=== PATIENT | female | born 1990 | race Two or more races ===

== ENCOUNTER 2017-01-07 06:31 | Inpatient (IN) | payer SELFPAY ==
[~2017-01-07] VITALS: Ht 165.1 cm; Wt 75.3 kg
[2017-01-07] VITALS (14 sets, daily range): BP systolic 116–138; BP diastolic 63–86; Ht 165.1 cm; Wt 75.3 kg
[2017-01-07] MEDS ORDERED: PRENATAL COMPLE1 TAB PO (06:35)
[2017-01-07] MEDS ORDERED: FERROUS SULFAT325 MG PO (06:37)
[2017-01-07] MEDS ORDERED: VITAMIN B-1250 MCG PO (06:38)
[2017-01-07 06:48] LABS: HEMATOCRIT 33.6 % (36.0-48.0); HEMOGLOBIN 10.4 g/dL (12-16); MCV 77.6 fL (80.0-100.0); MEAN PLATELET VOLUME 11.6 fL (7.4-10.4); RBC 4.33 10x6/uL (4.00-5.40); RDW 22.3 % (11.5-14.5)
--- NOTE | 2017-01-07 07:48 | NUR ---
INFANT BORN AT 0741
--- NOTE | 2017-01-07 09:00 | NUR ---
PT IS RECEIVED FROM RECOVERY. PT IS AWAKE AND ALERT. LUNGS-= CLEAR. HEART - RRR. ABD SOFT WITH TENDERNESS. BIKINI LINE INCISION WITH STERI STRIPS INTACT. CLEAN AND DRY. TRAN INTACT. WITH 100 CC [place] COLORED URINE. EMPTIED INTO TRAN BAG. EXT- SCD'S INTACT. IV R WRIST WITH NS WITH PIT INFUSING AT 125 CC/HR. DEMEROL WARP KNITTING MACHINE OPERATOR INITIATED. 10 MG Q 10 MIN WITH NO LOCKOUT DOSE. SALINE LOCK NOTED LEFT WRIST ALSO WHICH IS PATENT. BED IS LOW, SIDE RAILS UP X 2 AND CALL LIGHT IN REACH. PT WAS INSTRUCTED ON POST OP CARE.
--- NOTE | 2017-01-07 09:55 | NUR ---
Visited with pt. denies needs at this time. Updated communication board. Discussed goal.
--- NOTE | 2017-01-07 11:24 | NUR ---
PATIENT IS LYING IN BED. FAMILY AT BEDSIDE. PT STATES HER PAIN IS ABOUT A 5. HER TRAN IS PATENT. 175 CC [place] COLORED URINE. IV PATENT WITH NS W/ PIT INFUSING AT 125 CC/HR. DEMEROL STONE BANKER. VSS. INCISION CLEAN AND DRY. ICE PACK INTACT.
--- NOTE | 2017-01-07 12:30 | NUR ---
PT IS SLEEPING. FAMILY AT BEDSIDE. VSS. BED IS LOW, SIDE RAILS UP X 2 AND CALL LIGHT IN REACH.
--- NOTE | 2017-01-07 13:30 | NUR ---
PT IS SLEEPING IN BED. SISTER IS AT BEDSIDE. BED IS LOW. SIDE RAILS UP X 2 AND CALL LIGHT IS IN REACH. TRAN WITH 100 CC [place] COLORED URINE. IV PATENT.
--- NOTE | 2017-01-07 14:25 | NUR ---
PT IS LYING IN BED. OFFER NO COMPLAINTS . PAIN IS ABOUT A 2-3. BED PADS AND PERIPADS CHANGED FOR PT. MODERATE LOCIA RUBRA. FUNDUS IS FIRM AT UMBILICUS. TRAN INTACT WITH 100 CC [place] COLORED URINE. BED IS LOW, SIDE RAILS UP X 2 AND CALL LIGHT IN REACH.
--- NOTE | 2017-01-07 18:39 | NUR ---
NEW DEMEROL OFFICE CLIN ASST INITIATED. IV PATENT.
--- NOTE | 2017-01-07 19:30 | NUR ---
V/S STABLE. HER BABY.
--- NOTE | 2017-01-07 19:55 | NUR ---
AWAKE DURING INITIAL ROUNDS. INTRODUCED SELF. ASSESSMENT DONE. STATUS POST C/S TODAY. IVF NS+20 units PITOCIN @ 125cc/hr TO R WRIST. IV SITE OK. NEW IV BAG HUNG. TRAN CATH TO DRAINAGE BAG PATENT. LOW TRANSVERSE INCISION WITH STERI-STRIPS INTACT. SCD's TO LOWER EXTREMITIES TO PREVENT DVT. INFANT IN THE ROOM IN OPEN CRIB--BABY HANDED TO MOM. DEMEROL TRANSFORMER MECHANIC FOR PAIN MANAGEMT. SEE E-MAR.
--- NOTE | 2017-01-07 23:00 | NUR ---
HER BABY. BONDING WELL.
--- NOTE | 2017-01-08 | NUR ---
V/S STABLE. TRAN/JENNY-CARE DONE. MODERATE TO LIGHT LOCHIA RUBRA. JENNY-PAD CHANGED. TRAN CATH BAG EMPTIED. IV PUMP CLEARED.
--- NOTE | 2017-01-08 01:46 | NUR ---
NURSERY NURSE BROUGHT BABY TO MOM FOR . GOOD INFANT-MATERNAL BONDING.
[2017-01-08 03:23] VITALS: BP 134/72
--- NOTE | 2017-01-08 03:23 | NUR ---
V/S STABLE. INFANT IN HER ARMS.
--- NOTE | 2017-01-08 03:50 | NUR ---
PT RINGS CL. THIS RN TO BEDSIDE. CURRENT INFUSION OF PITOCIN COMPLETE. OLD BAG DOWN. NEW BAG UP TO PRESENT TUBING. SEE EMAR. INFANT PLACED IN OPEN CRIB PER PT REQUEST. PT DENIES FURTHER NEEDS.
--- NOTE | 2017-01-08 03:55 | NUR ---
PT RINGS CL. THIS RN TO BEDSIDE. PT STATES IS CRYING AND REQUESTS HE BE PLACED BACK IN BED WITH HER. PLACED IN MOTHER'S ARMS PER THIS RN.
--- NOTE | 2017-01-08 04:47 | NUR ---
FINGERPRINT EXPERT HERE TO DRAW AM LAB.
[2017-01-08 05:52] LABS: HEMOGLOBIN 9.4 g/dL (12-16); MCH 24.4 pg (26.0-34.0); MCHC 31.3 g/dL (31.0-37.0); MCV 77.7 fL (80.0-100.0); MEAN PLATELET VOLUME 11.4 fL (7.4-10.4); RBC 3.86 10x6/uL (4.00-5.40); RDW 22.6 % (11.5-14.5)
[2017-01-08 05:54] LABS: WBC 13.8 10x3/uL (4.8-10.8)
--- NOTE | 2017-01-08 06:09 | NUR ---
AWAKE DURING THE NIGHT FOR 'S FEEDINGS. SLEPT ON AND OFF. CONTINUING PLAN OF CARE.
[2017-01-08 06:14] LABS: RAPID PLASMA REAGIN Non Reactive (Non Reactive)
[2017-01-08 07:30] VITALS: BP 128/76
--- NOTE | 2017-01-08 07:30 | NUR ---
PT IS RECEIVED LYING IN BED. SHE IS BABY. VSS. STATES HER PAIN IS A 2. GEN- AWAKE AND ALERT. LUNGS- CLEAR. HEART- RRR. ABD- SOFT, BS+ WITH TENDERNESS NOTED. BIKINI LINE INCISION WITH STERI STRIPS, CLEAN DRY AND INTACT. MOD LOCIA RUBRA. EXT- WITH SCD'S INTACT. IV PATENT R WRIST WITH NS WITH PIT INFUSING. SALINE LOCK NOTED LEFT WRIST WHICH IS PATENT. TRAN CATH INTACT AND SECURE TO R THIGH. [place] COLORED URINE NOTED. BED IS LOW, SIDE RAILS UP X 2 AND CALL LIGHT IN REACH.
--- NOTE | 2017-01-08 07:51 | OP ---
PATIENT NAME: GIANNI ELIZONDO MEDICAL RECORD: [id number] :90 LOCATION:[id number] ADMISSION DATE:01/07/17 SURGEON: KIRA ABBOTT MD DATE OF OPERATION: 01/07/2017 PREOPERATIVE DIAGNOSIS: Previous section, term gestation, undesired fertility. POSTOPERATIVE DIAGNOSIS: Previous section, term gestation, undesired fertility. PROCEDURE: Repeat low transverse section and bilateral tubal ligation. SURGEON: Kira Abbott MD. ANESTHESIA: Spinal. FINDINGS: A 7 pound 2 ounce male infant with 9 and 9 Apgars in breech presentation, normal appearing pelvic anatomy. ESTIMATED BLOOD LOSS: 800 cc. COMPLICATIONS OF SURGERY: None. OPERATIVE NOTE: The patient was taken to the OR and under adequate spinal anesthesia, prepped and draped in the usual manner for abdominal procedures. A transverse incision was made in the old section incision and extended in a Pfannenstiel manner through subcutaneous tissue, fascia, dividing muscles in the midline. Peritoneum elevated and incised and this incision extended from the symphysis pubis to within a 7 cm of the umbilicus, avoiding the bladder and abdominal organs. A transverse incision was then made in the lower uterine segment and was delivered from a breech presentation without difficulty. Infant was thoroughly suctioned, cord doubly clamped and ligated and handed to waiting nursery personnel. Placenta was removed manually. The uterus was closed in two layers, first layer running interlocking #1 chromic suture, second layer an imbricating #1 chromic suture. Hemostasis was good. Pelvis was copiously irrigated and suctioned and hemostasis again confirmed. The right tube and left tube were then ligated in [place] manner without difficulty and segments were sent to pathology for further confirmation. Again, the uterine incision and tubal ligation sites were inspected and hemostasis confirmed after copiously irrigating the pelvis. Fascial layer closed in a running noninterlocking #1 PDS loop suture. Skin incision reapproximated using a subcuticular 2-0 plain gut suture. Dermabond was applied, a Steri-Strip dressing applied and the patient went to recovery area in good condition. TRANSINT:[id number] Voice Confirmation ID: [id number] DOCUMENT ID: [id number] OPERATIVE REPORT [id number] CAROGIANNI KIRA ABBOTT MD at 0751 CC: [id number] DICTATION DATE: 01/07/17 0832 AMUSEMENT PARK RIDE MECHANIC: 01/07/17 1205 ADM IN [place] [id number] [place] [id number]
--- NOTE | 2017-01-08 08:16 | NUR ---
Moriah Molina 01/08/17 S: Pelon states is going good, no problems. O: Pelon sitting up in bed eating breakfast. CLC walked in room with nursery nurse, who brought in room. Praised for . Explain does take time and patience. Latching for every feeding will help with establishing her milk supply. Supply and demand, what baby takes out her body will more of. Feed baby on demand, explained feeding cues. Asked if she had any problems with sore nipples, patient replied no. Encouraged to continue to latch infant for every feeding. Asked if any needs or concerns, patient declined, will follow up. A: Patient fairly shy and sweet, does respond when asking questions, just limited on words, and appears confidence with . P: Continue to support exclusively . Jocelyn Moreno, CLC
--- NOTE | 2017-01-08 08:30 | NUR ---
Visited with patient. at breast. Denies needs. Happy with care.
--- NOTE | 2017-01-08 09:19 | NUR ---
PT IS SITTING UP IN BED BABY. SHE OFFERS NO COMPLAINTS.
--- NOTE | 2017-01-08 10:00 | NUR ---
CHELSEA GRANT. 1400 CC [place] COLOR URINE. IV R WRIST SALINE LOCKED. INSTRUCTED PT WHEN SHE NEEDED TO GET UP TO PUSH HER CALL BUTTON FOR HELP. PT UNDERSTANDS.
--- NOTE | 2017-01-08 11:10 | NUR ---
PT UP TO VOID WITH MY ASSISTANCE. PT C/O A LITTLE DIZZINESS. SHE VOIDED 400 CC BLOODY URINE WITH 2 CLOTS NOTED. MESH PANTIE PUT ON AND JENNY PAD. PT IS BACK TO BED. BED IS LOW, SIDE RAILS UP X 2 AND CALL LIGHT IN REACH. INSTRUCTED TO CALL ME WHEN SHE NEEDS TO GET UP AGAIN.
--- NOTE | 2017-01-08 12:49 | NUR ---
PT IS UP TO VOID. VOIDED 550 [place] COLORED URINE. PT THEN GOT IN SHOWER. TOLERATED WELL. LINENS CHANGED. PT BACK TO BED.
--- NOTE | 2017-01-08 14:11 | NUR ---
PT IS SITTING UP IN BED HOLDING BABY. PT JUST BREASTFED BABY. SHE STATES HER PAIN IS OK AND DOES NOT WISH TO HAVE ANYTHING FOR PAIN. R SALINE LOCK PATENT. HER SISTER IS AT BEDSIDE.
--- NOTE | 2017-01-08 15:01 | NUR ---
PT IS SITTING UP IN BED HOLDING BABY. SHE OFFERS NO COMPLAINTS. PAIN IS STILL A 2/10. SHE DOES NOT WANT ANYTHING FOR PAIN. BED IS LOW, SIDERAILS ARE UP X 2. CALL LIGHT IS IN REACH.
[2017-01-08 19:25] VITALS: BP 126/77
--- NOTE | 2017-01-08 19:25 | NUR ---
ASSESSMENT PER FLOW SHEET, VS OBTAINED, SALINE LOCK IN RIGHT WRIST WITH NO EDEMA OR REDNESS, Tappr INC WITH STERI STRIPS CDI WITH NO DRAIANGE NOTED, FF, ML, U/2, LITE BLEEDING WITH NO CLOTS, PT DENIES FLATUS, NO BM AND VOIDING BY SELF WITH NO DIFFICULTY, ADM MYLICON PO PER MD ORDERS, SEE EMAR, PT DENIES NEED FOR PAIN MED, FRESH H20 SERVED, PT INST ON AND DEMONSTRATED I.S., ENC PT TO AMB, PT REPORTS AMB TO AND FROM BR AND AROUND THE ROOM, ENC PT TO AMB TO PRECISION AGRONOMIST BEFORE BEDTIME, PT VERBALIZES UNDERSTANDING, DENIES FURTHER NEEDS, DINNER TRAY AND TRASH REMOVED
--- NOTE | 2017-01-08 20:26 | NUR ---
PT UP AMB IN ROOM, PROVIDED BLUE SKID SOCKS, PT REPORTS GAS IS MUCH BETTER, DENIES NEED FOR PAIN MED AT THIS TIME
--- NOTE | 2017-01-08 21:10 | NUR ---
BABY TO ROOM VIA OPEN CRIB CART PER HARINI UGALDE, RN
--- NOTE | 2017-01-08 21:29 | NUR ---
PT BABY, DENIES NEEDS AT THIS TIME
--- NOTE | 2017-01-08 22:19 | NUR ---
PT FILLING OUT NSY PAPERWORK, PT DENIES NEEDS OR PAIN AT THIS TIME, BABY BACK IN NSY
[2017-01-09 00:10] VITALS: BP 127/55
--- NOTE | 2017-01-09 00:10 | NUR ---
PT RESTING WITH EYES CLOSED, AROUSES TO SOFT VERBAL STIMULATION, VS OBTAINED, PT DENIES NEEDS OR PAIN
--- NOTE | 2017-01-09 00:30 | NUR ---
BABY TO ROOM VIA OPEN CRIB CART PER HARINI UGALDE, RN
--- NOTE | 2017-01-09 01:10 | NUR ---
PT BOILERMAKER MECHANIC LIGHT, PT UP TO BR, GAIT STEADY, REQUESTS PAIN MED, PT INST TO USE CALL LIGHT WHEN BACK TO BED, PT VERBALIZES UNDERSTANDING, BABY TO NSY VIA OPEN CRIB CART PER THIS RN
--- NOTE | 2017-01-09 01:18 | NUR ---
ADM DEMEROL PO PER MD ORDERS, PT DENIES FURTHER NEEDS
--- NOTE | 2017-01-09 02:20 | NUR ---
PT FACILITATOR LIGHT, BABY TO PTS ARMS, PT INST ON WHEN BABY IS DUE TO FEED, PT VERBALIZES UNDERSTANDING, DENIES NEEDS OR PAIN AT THIS TIME
[2017-01-09 04:12] VITALS: BP 127/71
--- NOTE | 2017-01-09 04:12 | NUR ---
PT HOLDING BABY, VS OBTAINED, PT DENIES NEEDS OR PAIN, BABY TO NSY VIA OPEN CRIB CART PER THIS RN
--- NOTE | 2017-01-09 05:45 | NUR ---
PT RESTING WITH EYES CLOSED, RESP QUIET, NO DISTRESS NOTED, LEFT UNDISTURBED AT THIS TIME
--- NOTE | 2017-01-09 07:00 | NUR ---
SHIFT REPORT TO COOPER COLUNGA RN
--- NOTE | 2017-01-09 07:30 | NUR ---
NICOLE IS AWAKE AND ALERT, SITTING UPRIGHT IN HER BED, CRADLING HER . SHE SMILES AND DENIES NEEDS. FRESH WATER GIVEN. MNITORING CALL LIGHT IS WITHIN HER REACH. ENCOURAGED HER TO CALL FOR ANY NEEDS.
[2017-01-09 07:45] VITALS: BP 123/85
--- NOTE | 2017-01-09 09:20 | NUR ---
VSS. CRYING, MOB CLUCKING AT AND TALKING TO HIM, TRYING TO PACIFY HIM. AFTER VITALS, SHE OFFERED HIM A BREAST AND HE LATCHED WELL TO SUCKLE. SHE IS SMILING AND APPEARS SATISFIED. NO NEEDS NOTED. CALL LIGHT IS WITHIN HER REACH.
[2017-01-09] MEDS ORDERED: MEPERIDINE HCL50 MG PO (10:47)
[2017-01-09] MEDS ORDERED: IBUPROFEN600 MG PO (10:47)
--- NOTE | 2017-01-09 11:10 | NUR ---
DISCUSSED PATIENT'S DISCHARGE INSTRUCTIONS. DISCUSSED INCISION CARE, PELVIC REST, MEDICATIONS, SIGNS OF INFECTION, FOLLOW UP APPTS AND NEED FOR CAR SEAT BEFORE LEAVING. PRESCRIPTIONS GIVEN. SHE DENIES QUESTIONS. DID GIVE HER A DEMEROL 50MG FOR PAIN CONTROL DURING THE RIDE HOME. SHE DENIES OTHER NEEDS AT THIS TIME.
--- NOTE | 2017-01-09 11:40 | NUR ---
PATIENT DISCHARGED IN TO WAITING CAR. ACCOMPANIED BY HER MOTHER AND VOLUNTEER. NO NEEDS NOTED. BABY CAR SEAT CHECKED BY NURSERY NURSE.
== END 2017-01-09 11:40 | disposition home or self-care (01) | DRG 766 ==
LOC: D.WS 06:31 → D.LD 06:31 → D.WS 08:50 → D.LD 09:30 → D.WS 01-09 11:40
PROVIDERS: ADMIT Obstetrics & Gynecology
PROC: 10D00Z1 Extraction of Products of Conception, Low, Open Approach (ICD-10-PCS; principal; 2017-01-07 07:30)
PROC: 0UB70ZZ Excision of Bilateral Fallopian Tubes, Open Approach (ICD-10-PCS; 2017-01-07 07:30)
DX: O34.219 Maternal care for unspecified type scar from previous cesarean delivery (principal); Z3A.39 39 weeks gestation of pregnancy; Z37.0 Single live birth; Z30.2 Encounter for sterilization; Z30.09 Encounter for other general counseling and advice on contraception; O32.1XX0 Maternal care for breech presentation, not applicable or unspecified